=== PATIENT | female | born 1970 | race Caucasian/White ===

== ENCOUNTER 2019-02-03 11:41 | Emergency (ER) | payer BC ==
[~2019-02-03] VITALS: Ht 170.2 cm; Wt 74.0 kg
[2019-02-03 11:46] VITALS: BP 128/80
--- NOTE | 2019-02-03 12:03 | NUR ---
Provided with ice for right ankle.
[2019-02-03] MEDS ORDERED: HYDROcodone/APAP 5/325 TABLET ONE (12:28)
[2019-02-03] MEDS ORDERED: HYDROcodone/APAP 5/325 TABLET PO ONE (12:30)
[2019-02-03] MEDS ORDERED: NAPROXEN 500 MG TABLET PO ONE (12:30)
[2019-02-03] MEDS ORDERED: NAPROXEN 500 MG TABLET ONE (12:42)
--- NOTE | 2019-02-03 14:20 | NUR ---
TECH AT BEDSIDE TO APPLY SPLINT AND DO CRUTCH TEACHING
[2019-02-03] MEDS ORDERED: BACITRACIN ZINC OINT 500U/GM, 0.9 GM ONE (14:45)
--- NOTE | 2019-02-03 15:00 | NUR ---
LEFT KNEE ABRASION CLEANED AND BACITRACIN DRESSING APPLIED BY DENISE EDMONDS. SLPINT AND CRUTCH USE DEMONSTRATION PERFORMED BY DENISE EDMONDS.
--- NOTE | 2019-02-03 15:01 | NUR ---
Patient/Caregiver given discharge instructions and they have confirmed that they understand the instructions. Patient ambulatory with steady gait with crutches. Taken out in WC for comfort.
== END 2019-02-03 15:02 | disposition home or self-care (01) ==
LOC: ED 13:24
DX: S82.64XA Nondisplaced fracture of lateral malleolus of right fibula, initial encounter for closed fracture (principal); I10 Essential (primary) hypertension; W18.30XA Fall on same level, unspecified, initial encounter; Y93.89 Activity, other specified; Y92.410 Unspecified street and highway as the place of occurrence of the external cause; Y99.8 Other external cause status
CPT/HCPCS: 29515; 99284